=== PATIENT | female | born 1965 | race Caucasian/White ===

== ENCOUNTER 2018-03-08 01:28 | Outpatient (CLI) | payer MEDICAID, SELFPAY ==
--- NOTE | 2018-03-08 16:31 | DI.MAMMO_ITS ---
SYMPTOM/DIAGNOSIS: SCREENING, Z12.39 MAMMOGRAM: Mammograms were interpreted according to the usual protocol including computer analysis with CAD system, tomosynthesis and C view imaging. Comparison with prior examinations. Breast density B. No masses or microcalcifications are seen. There is nothing to suggest malignancy. IMPRESSION: Negative mammogram. Routine screening is recommended. Category I. MQSA ASSESSMENT OF FINDINGS: Negative. Category 1. Patient will receive a letter notifying them of these results. BI-RADS category B. There are scattered areas of fibroglandular density.
== END 2018-03-08 01:48 ==
PROVIDERS: PCP Nurse Practitioner; Visit Provider Nurse Practitioner
DX: Z12.31 Encounter for screening mammogram for malignant neoplasm of breast (principal)
CPT/HCPCS: 77063; 77067

== ENCOUNTER 2018-07-04 12:50 | Outpatient (REF) | payer SELFPAY ==
[2018-07-04 21:28] LABS: Abs Immature Grans 0.01 k/cumm (0.0-0.09); Absolute Basophil Count 0.07 k/cumm (0.0-0.2); Absolute Eosinophil Count 0.17 k/cumm (0.0-0.7); Absolute Lymphocyte Count 1.51 k/cumm (1.2-3.4); Absolute Monocyte Count 0.72 k/cumm (0.11-0.7); Absolute Neutrophil Count 4.27 k/cumm (1.2-6.7); Eosinophils % 2.5; HCT 39.9 % (36.0-46.0); HGB 13.5 g/dL (12.0-15.5); Immature Grans % 0.1; Lymphocytes % 22.4; Mean Corp. HGB Concentration 33.8 g/dL (32.0-36.0); Mean Corpuscular Hemoglobin 30.9 pg (27.0-33.0); Mean Corpuscular Volume 91.3 fL (80-95); Mean Platelet Volume 10.9 fL (8.0-11.0); Monocytes % 10.7; Neutrophils % 63.3; Platelet Count 305 x1000/uL (130-400); RBC 4.37 m/cumm (4.00-5.20); White Blood Cell Count 6.75 k/cumm (4.4-10.8)
[2018-07-04 22:27] LABS: ALT 20 U/L (12-78); AST 20 U/L (15-37); Alkaline Phosphatase 53 U/L (46-116); Anion Gap 7.8 mmol/L (3-11); BUN 12 mg/dL (7-18); Bilirubin, Total 0.3 mg/dL (0.2-1.0); CO2 28.2 mmol/L (21.0-32.0); CREATININE 0.81 mg/dL (0.55-1.02); Calcium 9.1 mg/dL (8.5-10.1); Chloride 101 mmol/L (98-107); Cholesterol 295 mg/dL (50-200); Glucose 79 mg/dL (70-100); HDL Cholesterol 96 mg/dL (40-60); LDL CHOLESTEROL 179 mg/dL (<100); Potassium 4.9 mmol/L (3.5-5.1); Sodium 137 mmol/L (136-145); TSH (W/Ref FT4) 1.02 uIU/mL (0.358-3.74); Total Protein 7.7 g/dL (6.4-8.2); Triglyceride 102 mg/dL (30-150)
[2018-07-04 22:36] LABS: Hemoglobin A1C 5.6 % (4.5-6.2)
== END 2018-07-04 13:10 ==
LOC: NCHCN 12:50
PROVIDERS: PCP Nurse Practitioner; Visit Provider Family Medicine
DX: R53.83 Other fatigue (principal); M79.18 Myalgia, other site; Z00.00 Encounter for general adult medical examination without abnormal findings
CPT/HCPCS: 80053; 80061; 83721; 83036; 84443; 85025

== ENCOUNTER 2019-07-12 02:14 | Outpatient (CLI) | payer SELFPAY ==
--- NOTE | 2019-07-12 12:55 | DI.RAD_ITS ---
EXAM: XR FOOT RT COMPLETE INDICATION: FOOT JOINT PAIN RT FOOT [id number]. COMPARISON: No exams were available for comparison TECHNIQUE: 2D digital imaging was performed. FINDINGS: There are severe degenerative changes of the 1st MTP joint. There is no hallux valgus. The remainin g MTP joints are unremarkable. Chronic-appearing bony densities are seen posterior to the talus. IMPRESSION: First MTP joint degenerative changes.
== END 2019-07-12 02:34 ==
PROVIDERS: PCP Nurse Practitioner; Visit Provider Nurse Practitioner
DX: M79.671 Pain in right foot (principal); M19.071 Primary osteoarthritis, right ankle and foot
CPT/HCPCS: 73630

== ENCOUNTER 2019-08-16 07:54 | Outpatient (REF) | payer OTHER, SELFPAY ==
--- NOTE | 2019-08-16 08:30 | PAPFT_PTH ---
PATIENT: Ashtyn Vega LOC: [facility]#:[id number] AGE/SX: 53/F ROOM: RE08/16/[address]: Nallely Seaman : 1965 BED: DIS: 08/16/2019 SPEC #: [id number] RECD: 08/16/19 12:47 STATUS: FERNANDO GORDON #: [id number] RAZIA: 08/16/19 08:[address]: Nallely Seaman DEPT: [facility] Cytology RECD BY: Chanelle Mesa Tissues: 1 - CX/ENDOCX FOR PAP SMEARS Procedures: PAP THIN PREP/UVM Screening HPV DNA PROBE Comments: [id number]
[2019-08-16 11:48] LABS: ALT 49 U/L (14-59); AST 53 U/L (15-37); Alkaline Phosphatase 58 U/L (46-116); Anion Gap 8.1 mmol/L (3-11); BUN 9 mg/dL (7-18); Bilirubin, Total 0.3 mg/dL (0.2-1.0); CO2 30.9 mmol/L (21.0-32.0); CREATININE 0.83 mg/dL (0.55-1.02); Calcium 9.5 mg/dL (8.5-10.1); Calculated LDL 190 mg/dL (<100); Chloride 102 mmol/L (98-107); Cholesterol 290 mg/dL (<200); Glucose 92 mg/dL (74-106); HDL Cholesterol 84 mg/dL (40-60); Potassium 4.7 mmol/L (3.5-5.1); Sodium 141 mmol/L (136-145); Total Protein 7.4 g/dL (6.4-8.2); Triglyceride 82 mg/dL (<150)
== END 2019-08-16 08:14 ==
LOC: NCHCN 07:54
PROVIDERS: PCP Nurse Practitioner; Visit Provider Nurse Practitioner
DX: Z00.00 Encounter for general adult medical examination without abnormal findings (principal); Z12.4 Encounter for screening for malignant neoplasm of cervix; Z11.51 Encounter for screening for human papillomavirus (HPV); Z13.220 Encounter for screening for lipoid disorders
CPT/HCPCS: 80053; 80061; 88142; 83880; 87624

== ENCOUNTER 2020-02-09 09:43 | Day surgery (SDC) | payer OTHER, SELFPAY ==
[2020-02-09 10:09] VITALS: BP 152/84; PULSE 70; RESP 20; TEMP 36.2; O2SAT 98
[2020-02-09] MEDS: Lactated Ringers 1,000 ML 80 ML IV (10:26)
--- NOTE | 2020-02-09 11:56 | W.PM.HP.N ---
Date of service: 02/09/20 Time of Service: 11:56 Assessment and Plan Assessment and plan (1) Colon cancer screening: Status: Acute Assessment and plan: I advised colonoscopy. The procedure was described including the risks of perforation with need for surgery or bleeding. Patient agrees to proceed. History of Present Illness Narrative: 54 y/o female presents for her first colonoscopy screening pre-op. She denies a family history of colon cancer. She denies any changes in bowel habits including bloody or black tarry stools, abdominal pain, diarrhea or constipation. She denies constitutional symptoms. She report use of marijuana occasionally. Denies use of any other recreational or illegal drugs. She denies chest pain, palpitations, dyspnea or dyspnea with exertion. She denies prior history or family history of adverse reactions or complications with anesthesia. She denies having any metal implanted in her body. Review of Systems All systems reviewed & are unremarkable except as noted in HPI and below PFSH Medical History Anxiety (Chronic) Depression (Chronic) Insomnia (Acute) Onychomycosis (Acute) Rotator cuff syndrome (Acute) Uterine fibroid (Acute) Surgical History H/O hernia repair (Chronic) History of section (Chronic) x3 Open Carpal Tunnel release (04/12/15) LEFT WRIST/Liset LÓPEZ wrist ECTR. Social History Smoking/Tobacco Use Status: Never Alcohol Intake: current Alcohol Intake frequency: a few times a week Alcohol type: beer Drug use: Occasionally Substance use type: marijuana Details: last used 2 days ago. Do you feel safe at home: Yes Do you feel safe in your relationship?: Yes Meds Home Medications and Allergies Home Medications Medication Instructions Recorded Confirmed Type fluoxetine [Prozac] 80 mg PO DAILY tab-cap 06/13/13 02/09/20 History acetaminophen [Tylenol] 325 mg PO DIRECTED tab-cap 01/08/15 02/09/20 History bupropion HCl [Wellbutrin Sr] 450 mg PO DAILY tab-cap 01/08/15 02/09/20 History ergocalciferol (vitamin D2) 1 tab PO DAILY tab-cap 01/08/15 02/09/20 History multivitamin [Daily Vitamin] 1 ea PO DAILY 01/08/15 02/09/20 History trazodone 100 mg PO HS tab-cap 01/08/15 02/09/20 History bisacodyl 5 mg tablet,delayed 5 mg PO ONCE #4 tab 01/30/20 02/09/20 Rx release polyethylene glycol 3350 17 17 g PO ONCE #238 gm 01/30/20 02/09/20 Rx gram/dose oral powder Allergies Allergy/AdvReac Type Severity Reaction Status Date / Time No Known Allergies Allergy Verified 02/09/20 10:17 Exam Narrative Exam Narrative: Alert, no distress Lungs CTA Heart RRR Results Last Vital Signs Temp 97.2 F L 02/09/20 10:09 Pulse 70 02/09/20 10:09 Resp 20 02/09/20 10:09 BP 152/84 H 02/09/20 10:09 Pulse Ox 98 02/09/20 10:09 COVID-19 Screening Have you,or household,traveled outside [place] in last 14 days?: No Had IN PERSON contact w/suspected or confirmed C-19 person: No
--- NOTE | 2020-02-09 12:00 | W.PM.DSUDISC ---
Discharge Plan Disposition Patient Disposition: HOME Condition: Good Discharge Details Reason For Visit: Colonoscopy Attending Provider: Angie Lopez Primary Care Provider: Nallely Seaman Home Meds and New Rx's Prescriptions: Continued fluoxetine [Prozac] 40 MG capsule 80 mg PO DAILY RF: 0 multivitamin [Daily Vitamin] 1 EACH tablet 1 ea PO DAILY RF: 0 bupropion HCl [Wellbutrin SR] 150 MG tablet extended release 12 hr 450 mg PO DAILY RF: 0 acetaminophen [Tylenol] 325 MG tablet 325 mg PO DIRECTED RF: 0 ergocalciferol (vitamin D2) 400 UNIT tablet 1 tab PO DAILY RF: 0 trazodone 100 MG tablet 100 mg PO HS RF: 0 Discontinued bisacodyl [Dulcolax (bisacodyl)] 5 mg tablet,delayed release (DR/EC) 5 mg PO ONCE Qty: 4 RF: 0 polyethylene glycol 3350 17 gram/dose powder 17 g PO ONCE Qty: 238 RF: 0 Discharge Instructions Additional Instructions: Findings: Your colonoscopy was normal. Follow up: Plan on routine screening colonoscopy in 10 years or sooner if symptoms arise. Please call if you develop: fevers >101.5 Nausea or Vomiting Abdominal pain that is not transient DAY SURGERY UNIT POST COLONOSCOPY INSTRUCTIONS 1. Because there will be medication in your system for the next 24 hours, you may feel a little sleepy. Your coordination will be affected. Therefore: a. Do not drive or operate dangerous equipment for 24 hours. b. Do not drink alcohol beverages for 24 hours (not even beer). c. Plan to go home and rest for the day. 2. Generally there are no restrictions on your activity after a day or so has gone by, but you may feel a bit fatigued for a few days. 3 After you arrive home you may have a light meal and return to a normal diet as you can tolerate it without feeling sick to your stomach. 4. After surgery, you may feel pain or discomfort. This should be only transient, but if it persists please contact your doctor. 5. If there are any questions regarding the findings of your procedure, please feel free to contact your doctor. 6. If you are unable to contact your doctor with a problem, contact the hospital at [phone]. 7. Continue all your regular medications unless directed otherwise. I understand the above instructions and have no questions. Signature of Patient or Responsible Adult Escort Date/Time Name of Responsible Adult Escort Signature of Nurse Date/Time Activity:: Activity as Tolerated Diet:: As Tolerated Discharge Orders Discharge Orders: Discharge Order (Routine); Ordered 02/09/20 Ordered By: Angie Lopez DS: Diagnosis Discharge Diagnosis (1) Colon cancer screening: Status: Acute
--- NOTE | 2020-02-09 12:02 | W.COLOREPORT ---
Date of service: 02/09/20 Time of Service: 12:44 Colonoscopy Report Date of procedure: 02/09/20 Pre-op diagnosis general: Colon screening Post-op diagnosis procedure note: other (Normal colon) Procedure: Colonoscopy Surgeon: Angie Lopez Anesthesia proc note operative: MAC Indications: This 54 year woman presents for her first screening colonoscopy. She has no symptoms or FH colon cancer. Procedure Description: The patient was placed in the left Salc[place] position. Propofol was titrated to sedation. Digital rectal examination revealed no abnormalities. The scope was advanced to the cecum without difficulty. The ileocecal valve and appendiceal orifice were clearly identified. The prep was good. The scope was slowly withdrawn over the course of greater than 6 minutes with no abnormalities seen in the ascending, transverse, descending, sigmoid colon or rectum including on retroflexed view. The patient tolerated the procedure well and was stable to recovery. Plan for routine screening colonoscopy in 10 years or sooner if symptoms indicate.
[2020-02-09 13:29] VITALS: BP 133/81; PULSE 73; RESP 20; TEMP 36.2; O2SAT 100
== END 2020-02-09 13:58 | disposition home or self-care (01) ==
PROVIDERS: PCP Nurse Practitioner; Visit Provider Surgery
PROC: 0DJD8ZZ Inspection of Lower Intestinal Tract, Via Natural or Artificial Opening Endoscopic (ICD-10-PCS; CPT 45378; principal; 2020-02-09 12:00)
DX: Z12.11 Encounter for screening for malignant neoplasm of colon (principal)
CPT/HCPCS: 45378; 81025; NC; J2704

== ENCOUNTER 2020-07-30 01:49 | Outpatient (CLI) | payer OTHER, SELFPAY ==
--- NOTE | 2020-07-30 12:48 | DI.MAMMO_ITS ---
EXAM: MAMMO SCREENING CLINICAL HISTORY: SCREENING, Z12.39 TECHNIQUE: Mammograms were interpreted according to the usual protocol including computer analysis w Strobe CAD system, tomosynthesis and C-view imaging. COMPARISON: 2018 FINDINGS: The breasts are composed of scattered fibroglandular densities, Breast Density category B. No suspicious masses or suspicious microcalcifications are seen. No skin thickening or abnormal axillary lymph nodes are seen. There has been no significant change from prior exams. IMPRESSION: BI-RADS Category 1, Negative mammogram Yearly screening mammography is recommended. Breast Density - Category B, scattered fibroglandular densities. A negative radiographic report should not delay biopsy if a dominant or clinically suspicious mass is present. Up to ten percent of cancers are not identified on mammography. A negative report may reinforce clinical impression. Adenosis and dense breasts may obscure an underlying neoplasm. False positive reports average 6 to 10%. Patient will receive a letter notifying them of these results.
== END 2020-07-30 02:09 ==
PROVIDERS: PCP Nurse Practitioner; Visit Provider Nurse Practitioner
DX: Z12.31 Encounter for screening mammogram for malignant neoplasm of breast (principal)
CPT/HCPCS: 77063; 77067

== ENCOUNTER 2020-09-16 13:18 | Outpatient (REF) | payer OTHER, SELFPAY ==
--- NOTE | 2020-09-16 13:30 | PAPFT_PTH ---
PATIENT: Ashtyn Vega LOC: [facility]#:[id number] AGE/SX: 54/F ROOM: RE09/16/[address]: Nallely Seaman : 1965 BED: DIS: 09/16/2020 SPEC #: [id number] RECD: 09/16/20 17:15 STATUS: FERNANDO GORDON #: [id number] RAZIA: 09/16/20 13:[address]: Nallely Seaman DEPT: [facility] Cytology RECD BY: Chanelle Mesa Tissues: 1 - CX/ENDOCX FOR PAP SMEARS Procedures: PAP THIN PREP/UVM Screening HPV DNA PROBE Comments: [id number]
[2020-09-16 16:28] LABS: ALT 44 U/L (14-59); AST 32 U/L (15-37); Albumin 4.1 g/dL (3.4-5.0); Alkaline Phosphatase 55 U/L (46-116); Anion Gap 8.2 mmol/L (3-11); BUN 16 mg/dL (7-18); Bilirubin, Total 0.3 mg/dL (0.2-1.0); CO2 29.8 mmol/L (21.0-32.0); CREATININE 0.8 mg/dL (0.55-1.02); Calcium 9.5 mg/dL (8.5-10.1); Calculated LDL 202 mg/dL (<100); Chloride 101 mmol/L (98-107); Cholesterol 330 mg/dL (<200); Glucose 85 mg/dL (74-106); HDL Cholesterol 114 mg/dL (40-60); Potassium 4.3 mmol/L (3.5-5.1); Sodium 139 mmol/L (136-145); Total Protein 7.7 g/dL (6.4-8.2); Triglyceride 70 mg/dL (<150)
== END 2020-09-16 13:19 | disposition home or self-care (01) ==
LOC: NCHCN 13:18
PROVIDERS: PCP Nurse Practitioner; Visit Provider Nurse Practitioner
DX: Z00.00 Encounter for general adult medical examination without abnormal findings (principal); E78.5 Hyperlipidemia, unspecified; F41.8 Other specified anxiety disorders; Z12.4 Encounter for screening for malignant neoplasm of cervix; Z11.51 Encounter for screening for human papillomavirus (HPV)
CPT/HCPCS: 80053; 80061; 88142; 87624

== ENCOUNTER 2022-01-08 18:59 | Outpatient (REF) | payer OTHER, SELFPAY ==
[2022-01-08 19:30] LABS: ALT 26 U/L (14-59); AST 25 U/L (15-37); Alkaline Phosphatase 50 U/L (46-116); Anion Gap 9.3 mmol/L (3-11); BUN 15 mg/dL (7-18); Bilirubin, Total 0.3 mg/dL (0.2-1.0); CO2 27.7 mmol/L (21.0-32.0); CREATININE 0.9 mg/dL (0.55-1.02); Calcium 8.9 mg/dL (8.5-10.1); Calculated LDL 185 mg/dL (<100); Chloride 99 mmol/L (98-107); Cholesterol 300 mg/dL (<200); Glucose 90 mg/dL (74-106); HDL Cholesterol 88 mg/dL (40-60); Potassium 4.1 mmol/L (3.5-5.1); Sodium 136 mmol/L (136-145); Total Protein 7.3 g/dL (6.4-8.2); Triglyceride 136 mg/dL (<150)
== END 2022-01-08 19:00 | disposition home or self-care (01) ==
LOC: NCHCN 18:59
PROVIDERS: PCP Nurse Practitioner; Visit Provider Nurse Practitioner Family
DX: Z00.00 Encounter for general adult medical examination without abnormal findings (principal); F41.8 Other specified anxiety disorders; E78.5 Hyperlipidemia, unspecified; G47.00 Insomnia, unspecified
CPT/HCPCS: 80053; 80061

== ENCOUNTER 2023-01-11 19:16 | Outpatient (REF) | payer OTHER, SELFPAY ==
[2023-01-11 19:53] LABS: Abs Immature Grans 0.01 10^3/uL (0.0-0.06); Absolute Basophil Count 0.08 10^3/uL (0.0-0.2); Absolute Lymphocyte Count 1.71 10^3/uL (1.2-3.4); Absolute Monocyte Count 0.74 10^3/uL (0.1-0.8); Absolute Neutrophil Count 3.32 10^3/uL (1.2-6.7); Basophils % 1.3; Eosinophils % 3.3; HCT 39.8 % (36.0-46.0); HGB 14.2 g/dL (11.2-15.7); Immature Grans % 0.2; Lymphocytes % 28.2; MCH 32.6 pg (27.0-33.0); MCHC 35.7 % (32.0-36.0); MCV 91 fL (80-95); MPV 9.5 fL (8.0-11.0); Monocytes % 12.2; Neutrophils % 54.8; Platelet Count 360 10^3/uL (130-400); RBC 4.36 10^6/uL (3.93-5.22); RDW 11.6 % (11.7-14.6); RDW-SD 39.4 fL; WBC 6.06 10^3/uL (4.4-10.8)
[2023-01-11 20:44] LABS: ALT 28 U/L (14-59); AST 28 U/L (15-37); Albumin 4.1 g/dL (3.4-5.0); Alkaline Phosphatase 60 U/L (46-116); Anion Gap 9.5 mmol/L (3-11); BUN 9 mg/dL (7-18); Bilirubin, Total 0.3 mg/dL (0.2-1.0); CO2 27.5 mmol/L (21.0-32.0); CREATININE 0.8 mg/dL (0.55-1.02); Calcium 9.2 mg/dL (8.5-10.1); Calculated LDL 191 mg/dL (<100); Chloride 99 mmol/L (98-107); Cholesterol 316 mg/dL (<200); Estimated GFR 86.96 (mL/min/1.73m2); Glucose 109 mg/dL (74-106); HDL Cholesterol 110 mg/dL (40-60); Potassium 4.1 mmol/L (3.5-5.1); Sodium 136 mmol/L (136-145); TSH (W/Ref FT4) 1.57 uIU/mL (0.36-3.74); Total Protein 7.4 g/dL (6.4-8.2); Triglyceride 79 mg/dL (<150)
== END 2023-01-11 19:17 | disposition home or self-care (01) ==
LOC: NCHCN 19:16
PROVIDERS: PCP Nurse Practitioner; Visit Provider Nurse Practitioner Family
DX: E78.5 Hyperlipidemia, unspecified (principal); Z79.899 Other long term (current) drug therapy; F41.8 Other specified anxiety disorders
CPT/HCPCS: 80053; 80061; 84443; 85025

== ENCOUNTER 2023-01-20 03:16 | Outpatient (CLI) | payer OTHER, SELFPAY ==
--- NOTE | 2023-01-20 | DI.MAMMO_ITS ---
Exam(s) MAMMO SCREENING EXAM: MAMMO SCREENING CLINICAL HISTORY: SCREENING, Z12.39 TECHNIQUE: Bilateral full field digital CC and MLO mammographic images were obtained with 3D tomosyn thesis and utilizing computer aided detection (CAD). COMPARISON: Available for comparison. FINDINGS: Masses/Architectural Distortion: There is a new 3 mm nodule in the outer left breast seen on the cran iocaudad view. No areas of architectural distortion are present. Microcalcifications: No suspicious pleomorphic-type are seen. Skin Thickening/Nipple Retraction: None. IMPRESSION: 1. New 3 mm nodule in the outer left breast on the craniocaudad view. 2. This area should be further evaluated with a spot compression view. Limited left breast ultrasoun d may also be indicated at that time. BI-RADS Category 0 - Assessment Incomplete: Need additional imaging evaluation Breast Density - Category B - Scattered areas of fibroglandular density Breast density category C or D implies that the patient has dense breast tissue. Dense breast tissue is very common and is not abnormal but dense breast tissue can make it harder to find cancer on a ma mmogram. Also, dense breast tissue may increase their breast cancer risk. This information about the result of the mammogram report was provided to the patient to raise their awareness. Use this report when you speak with the patient about their risks for breast cancer, which includes their family hist ory. At that time, you may recommend for more screening tests (Ultrasound or MRI) as they might be us eful based on their risk. A negative radiographic report should not delay biopsy if a dominant or clinically suspicious mass is present. Up to ten percent of cancers are not identified on mammography. A negative report may reinforce clinical impression. Adenosis and dense breasts may obscure an underlying neoplasm. False positive reports average 6 to 10%. Patient will receive a letter notifying them of these results.
== END 2023-01-20 03:36 ==
LOC: DI 03:16
PROVIDERS: PCP Nurse Practitioner; Visit Provider Nurse Practitioner Family
DX: Z12.31 Encounter for screening mammogram for malignant neoplasm of breast (principal)
CPT/HCPCS: 77063; 77067

== ENCOUNTER 2023-01-27 02:59 | Outpatient (CLI) | payer OTHER, SELFPAY ==
--- NOTE | 2023-01-27 14:37 | DI.MAMMO_ITS ---
Exam(s) MG MAMMO SCREEN CALL BACK UNI US BREAST LT LIMITED EXAM: MG MAMMO SCREEN CALL BACK UNI and U/S breast LT limited CLINICAL HISTORY: 3 MM NODULE IN OUTER LT BREAST ON CC VIEW. TECHNIQUE: Craniocaudal and mediolateral oblique Full Field Digital Mammography views of the left br east with Computer Aided Diagnosis followed by Tomosynthesis and left breast ultrasound. COMPARISON: Comparison is made with prior examinations. FINDINGS: Mammography/Tomosynthesis: Masses/Architectural Distortion: The previously noted nodule is less concerning on the additional vie ws. Microcalcifictions: No suspicious pleomorphic-type are seen. Skin Thickening/Nipple Retraction: None. Limited left breast US: Echotexture: Normal appearance of the glandular tissue. Shadowing: No suspicious foci. Cyst: None. Solid lesions: Benign-appearing lymph node is seen in the axillary tail region of the breast. Ductal dilation: None. IMPRESSION: 1. No evidence of malignancy is noted. 2. Unless there is more urgent need, follow-up screening mammography is recommended, as per [place] [employer] guidelines. 3. The findings were discussed with the patient on the date of the examination. BI-RADS Category 1 - Negative Breast Density - Category B - Scattered areas of fibroglandular density Breast density Category C or D implies that the patient has dense breast tissue. Dense breast tissue can make it harder to find cancer on a mammogram. Dense breast tissue is also associated with an incr eased risk of breast cancer. This information about the result of the mammogram report was provided to the patient to raise their awareness. Use this report when you speak with the patient about their risks for breast cancer, which includes their family history. At that time, you may recommend additional screening tests (Ultrasoun d or MRI) as these tests may add significant information. A negative radiographic report should not delay biopsy if a dominant or clinically suspicious mass is present. Up to ten percent of cancers are not identified on mammography. A negative report may reinforce clinical impression. Adenosis and dense breasts may obscure an underlying neoplasm. False positive reports average 6 to 10%. Patient will receive a letter notifying them of these results.
== END 2023-01-27 03:19 ==
LOC: DI 02:59
PROVIDERS: PCP Nurse Practitioner; Visit Provider Nurse Practitioner Family
DX: Z12.31 Encounter for screening mammogram for malignant neoplasm of breast (principal); R92.8 Other abnormal and inconclusive findings on diagnostic imaging of breast
CPT/HCPCS: 76642; 77063; 77067

== ENCOUNTER 2023-07-01 09:45 | Emergency (ER) | payer OTHER, SELFPAY ==
[2023-07-01 09:50] VITALS: BP 203/101; PULSE 107; TEMP 36.9; O2SAT 100
--- NOTE | 2023-07-01 10:15 | RT.EKG_ITS ---
APPROVED REPORT Exam: Resting ECG Reason for Exam: depression, eval QT Patient Location: E HR:90 bpm ECG Measurements Heart Rate 90 AXIS [place] 151 P 39 QRSd 76 QRS 5 QT 374 T 5 QTc 458 Conclusion Sinus rhythm...normal P axis, V-rate 60- 99 Probable left atrial enlargement...P >50mS, <-0.10mV V1 no ST segment or T wave abnormalities to suggest occlusive VT
--- NOTE | 2023-07-01 10:23 | W.ED.GENAD ---
Discharge Plan Disposition Patient Disposition: Home Condition: Stable Discharge Details Clinical Impression: Anxiety, Depression Primary Care Provider: Nallely Seaman ED Provider: Minnie Matta Home Meds and New Rx's Prescriptions: No Action fluoxetine [Prozac] 40 MG capsule 80 mg PO DAILY multivitamin [Daily Vitamin] 1 EACH tablet 1 ea PO DAILY bupropion HCl [Wellbutrin SR] 150 MG tablet extended release 12 hr 450 mg PO DAILY acetaminophen [Tylenol] 325 MG tablet 325 mg PO DIRECTED ergocalciferol (vitamin D2) 400 UNIT tablet 1 tab PO DAILY trazodone 100 MG tablet 100 mg PO HS aripiprazole 2 mg tablet 5 mg PO DAILY Patient Comments: TAKE ONE TABLET BY MOUTH EVERY DAY Rx Instructions: orally; atorvastatin 40 mg tablet 40 mg PO DAILY Patient Comments: TAKE 1 TABLET BY MOUTH EVERY EVENING Discharge Instructions Instructions: Depression (ED), Help Prevent Suicide (ED) Additional Instructions: Please continue your medications as previously prescribed. Please follow the safety plan as discussed by [facility] services. Please return to the ER for any worsening thoughts of wanting to harm yourself, or any concerns. [facility] will check in on you daily, please call the crisis hotline if needed or return to ED. Medical screening exam was with largely within normal limits. No evidence of hypothyroidism or urinary tract infection. Referrals: [facility] [Outside] - 1 day (As directed) Nallely Seaman [Primary Care Provider] - Return if symptoms worsen Discharge Data Discharge Date/Time-TO BE ENTERED AT DEPARTURE: 07/01/23 13:11 Medical Decision Making 57-year-old female presents to the ER with chief complaint of depression, recent changes in her medications and she quotes I have hit a wall, I just cannot pull myself out of it anymore, she is tearful upon my evaluation. She denies any problems with appetite. She reports no current suicidal plan however she states that she has had suicidal ideations in the past and that she is afraid of losing her job. She was recently taken off Wellbutrin and prescribed Abilify which she reports is not working for her she also takes fluoxetine which she has been on for a very long time. She does have a past medical history of insomnia uterine fibroids, anxiety depression and rotator cuff syndrome. Her PCP does prescribe her medications. She does have a surgical history of hernia repair and carpal tunnel release. On initial exam she is guarded, tearful and appears sad. Medical clearance workup ordered including EKG CBC CMP TSH level, urinalysis and UDS and ethyl alcohol level, patient is a daily drinker. She does have recent medication changes and she reports that she has not been to her PCP in a while. Will have an EKG chest consult after medical clearance screening. CBC shows no leukocytosis, CMP shows glucose of 136, TSH within normal limits, urine analysis shows no signs of UTI, negative UDS, ethyl alcohol less than 3.0 1137: Spoke with GRACIE Santos who reports someone will be over soon. Differential diagnosis includes but not limited to anxiety, depression 1230: Leann BOWMAN here at [facility] for eval. 1254: Leann BOWMAN states that patient to be discharged home with safety plan and then transition to a care bed when available. Will plan to discharge in the care of her friend with strict return instructions. This text was generated using [employer]ation system, please disregard any oddities of phrase or misspellings. HPI General Mode of arrival: ambulatory. Date/Time Provider Initiated Documentation: 07/01/23 09:46. Limitations to Documentation: no limitations. Information obtained by: patient, RN notes reviewed and old records reviewed. HPI Narrative: 57-year-old female presents to the ER with chief complaint of depression, recent changes in her medications and she quotes I have hit a wall, I just cannot pull myself out of it anymore, she is tearful upon my evaluation. She denies any problems with appetite. She reports no current suicidal plan however she states that she has had suicidal ideations in the past and that she is afraid of losing her job. She was recently taken off Wellbutrin and prescribed Abilify which she reports is not working for her she also takes fluoxetine which she has been on for a very long time. She does have a past medical history of insomnia uterine fibroids, anxiety depression and rotator cuff syndrome. Her PCP does prescribe her medications. She does have a surgical history of hernia repair and carpal tunnel release. On initial exam she is guarded, tearful and appears sad. Related Data Home Medications Medication Instructions Recorded Confirmed fluoxetine 40 mg capsule (Prozac) 80 mg PO DAILY 06/13/13 07/01/23 acetaminophen 325 mg tablet 325 mg PO DIRECTED 01/08/15 07/01/23 (Tylenol) bupropion HCl 150 mg tablet,12 hr 450 mg PO DAILY 01/08/15 07/01/23 sustained-release (Wellbutrin SR) ergocalciferol (vitamin D2) 10 mcg 1 tab PO DAILY 01/08/15 07/01/23 (400 unit) tablet multivitamin (Daily Vitamin tablet) 1 ea PO DAILY 01/08/15 07/01/23 trazodone 100 mg tablet 100 mg PO HS 01/08/15 07/01/23 aripiprazole 2 mg tablet 5 mg PO DAILY 07/01/23 07/01/23 atorvastatin 40 mg tablet 40 mg PO DAILY 07/01/23 07/01/23 Allergies Allergy/AdvReac Type Severity Reaction Status Date / Time No Known Allergies Allergy Verified 07/01/23 09:53 General Stated Complaint: PsychEval LOW: 2 Review of Systems All systems reviewed & are unremarkable except as noted in HPI and below Cardiovascular Cardiovascular: Denies chest pain and Denies dyspnea Respiratory Respiratory: Denies dyspnea Gastrointestinal Gastrointestinal: Denies abdominal pain, Denies hematochezia, Reports change in stool character, Reports loose stools, Denies nausea and Denies vomiting Psychiatric Psychiatric: Reports as per HPI, Reports anxiety, Denies change in appetite, Reports depression, Reports difficulty concentrating, Reports mood swings, Denies visual hallucinations and Denies hallucinations PFSH All Active Problems (Updated 07/01/23 @ 13:00 by Minnie Matta NP) Depression (Chronic) Anxiety (Chronic) Colon cancer screening (Acute) Medical History (Updated 07/01/23 @ 13:00 by Minnie Matta NP) Insomnia Uterine fibroid Rotator cuff syndrome Onychomycosis Anxiety Depression Surgical History History of section x3 H/O hernia repair Open Carpal Tunnel release (04/12/15) LEFT WRIST/DR. RIVERA R wrist ECTR. Social History Smoking/Tobacco Use Status: Never Smoking risk assessment performed?: Yes Alcohol Intake: current Alcohol Intake frequency: a few times a week Alcohol type: beer Drug use: Never Substance use type: does not use Details: last used 2 days ago. Do you feel safe at home: Yes Do you feel safe in your relationship?: Yes Exam Psych Appearance: well kempt Speech and Movement: speech and movement normal Affect: sad Attitude: cooperative Thought Content: phobias (Is afraid of losing her job due to her symptoms) Insight: insight good Judgment: judgment good Course Vital Signs Vital signs: Vital Signs Temperature 36.9 C 07/01/23 09:50 Pulse 107 H 07/01/23 09:50 Blood Pressure 203/101 H 07/01/23 09:50 Pulse Oximetry 100 07/01/23 09:50 Temperature 36.9 C 07/01/23 09:50 Temperature Source Temporal Artery Scan 07/01/23 09:50 Pulse 107 H 07/01/23 09:50 Respiratory Effort Normal, Non-Labored 07/01/23 09:57 Blood Pressure 203/101 H 07/01/23 09:50 Blood Pressure Position Sitting 07/01/23 09:50 Pulse Oximetry 100 07/01/23 09:50 Oxygen Delivery Method Nasal Cannula 07/01/23 09:50 PAWSS Have you Been Recently Intoxicated or Drunk Within the Last 30 days?: No Have you Ever Experienced Previous Episodes of Alcohol Withdrawal?: No Have you ever Experienced Withdrawal Seizures?: No Have you ever Experienced Delirium Tremens(DT)s?: No Have you ever undergone Alcohol Rehabilitation Treatment (i.e, inpt ot outpatient treatment programs)?: No Have you ever Experienced Blackouts?: No Have you ever Combined Alcohol with other Downers within the last 90 days?: No Have you ever Combined Alcohol with any other Substance of Abuse during the last 90 days?: No Positive Blood Alcohol level on Presentation? [PCS.BAL]: No Evidence of Increased Autonomic Activity (i.e. HR>120, tremor, sweating, agitation, nausea)?: No Result: 0
[2023-07-01 10:41] LABS: Abs Immature Grans 0.02 10^3/uL (0.0-0.06); Absolute Basophil Count 0.09 10^3/uL (0.0-0.2); Absolute Eosinophil Count 0.04 10^3/uL (0.0-0.7); Absolute Monocyte Count 0.71 10^3/uL (0.1-0.8); Absolute Neutrophil Count 6.49 10^3/uL (1.2-6.7); Basophils % 1.1; Eosinophils % 0.5; HCT 41.6 % (36.0-46.0); HGB 14.5 g/dL (11.2-15.7); Immature Grans % 0.2; MCH 32.4 pg (27.0-33.0); MCHC 34.9 % (32.0-36.0); MCV 93 fL (80-95); MPV 9.2 fL (8.0-11.0); Monocytes % 8.3; Neutrophils % 75.9; Platelet Count 342 10^3/uL (130-400); RBC 4.48 10^6/uL (3.93-5.22); RDW 11.9 % (11.7-14.6); RDW-SD 41.3 fL; WBC 8.55 10^3/uL (4.4-10.8)
[2023-07-01 11:04] LABS: ALT 35 U/L (14-59); AST 32 U/L (15-37); Albumin 4.2 g/dL (3.4-5.0); Alkaline Phosphatase 64 U/L (46-116); Anion Gap 10.7 mmol/L (3-11); BUN 14 mg/dL (7-18); Bilirubin, Total 0.5 mg/dL (0.2-1.0); CO2 26.3 mmol/L (21.0-32.0); CREATININE 0.8 mg/dL (0.55-1.02); Calcium 9.5 mg/dL (8.5-10.1); Chloride 100 mmol/L (98-107); Estimated GFR 86.96 (mL/min/1.73m2); Glucose 136 mg/dL (74-106); Potassium 4.2 mmol/L (3.5-5.1); Sodium 137 mmol/L (136-145); TSH (W/Ref FT4) 1.11 uIU/mL (0.36-3.74); Total Protein 8.2 g/dL (6.4-8.2)
[2023-07-01 11:05] LABS: Acetaminophen < 2 ug/mL (10-30); ETHANOL BLOOD < 3.0 mg/dL (<10); Salicylate < 2.8 mg/dL (<2.8)
[2023-07-01 11:10] LABS: Bilirubin Negative (Negative); Blood Negative (Negative); Clarity Clear (Clear); Glucose Negative (Negative); Ketones Negative (Negative); Leukocyte Esterase Negative (Negative); Nitrite Negative (Negative); Urobilinogen 0.2 mg/dL (Up to 0.2)
[2023-07-01 11:28] LABS: *AMPHETAMINES SCREEN URINE Negative (Negative); *BARBITURATES SCREEN URINE Negative (Negative); *BENZODIAZEPINES SCREEN URINE Negative (Negative); Cannabinoids THC Negative (Negative); Cocaine Screen,Urine Negative (Negative); METHADONE URINE SCREEN Negative (Negative); OPIATES URINE SCREEN Negative (Negative); Tricyclic Antidepressants Negative (Negative)
--- NOTE | 2023-07-01 14:45 | PDOC.MHCN ---
Date of service: 07/01/23 Time of Service: 12:07 PHQ-9 Over the last 2 weeks, how often have you been bothered by any of the following problems? 1. Little interest or pleasure in doing things: nearly every day 2. Feeling down, depressed, or hopeless: nearly every day 3. Trouble falling or staying asleep, or sleeping too much: nearly every day 4. Feeling tired or having little energy: nearly every day 5. Poor appetite or overeating: nearly every day 6. Feeling bad about yourself - or that you are a failure or have let yourself and your family down: more than half the days 7. Trouble concentrating on things, such as reading the newspaper or watching television: nearly every day 8. Moving or speaking so slowly that other people could have noticed? - Or the opposite - being so fidgety or restless that you have been moving around a lot more than usual: nearly every day 9. Thoughts that you would be better off or of hurting yourself in some way: not at all Total score: 23 If you checked off any problems, how difficult have these problems made it for you to do your work, take care of things at home, or get along with other people?: extremely difficult Source: Developed by Drs. Marcelo Yanez, Angela Doan, Saul Quiros and colleagues, with an educational hamlet from [employer]. Suicide Severity Rate CSSRS Have you wished you were or wished you could go to sleep and not wake up?: No Have you actually had any thoughts of killing yourself?: No CSSRS3 Have you ever done anything, started to do anything or prepared to do anything to end your life?: Yes CSSRS4 Was this within the past three months?: No Screening Score Total Score: 2 Screening: Positive Mental Health Emergency Note Release [facility] release signed:: Yes Reason for Visit In the last 2 weeks has the pt presented for ES prior to today?: No Client Information Client is: New Well Housed: Yes Non Suicidal Self Injury Current: No History: yes, 30 years ago client attempted to by suicide. Safety Risk/Harm to Self or Others Current Ideation to Harm Self or Others: No Risk: Does risk to harm exist?: No Risk: Moderate Risk Duty to warn indicated: No Asssessment/Mental Status Appearance: Unremarkable Attitude: Cooperative and Friendly Behavior: Unremarkable Speech: Normal, Soft and Hesitant Affect: Cogruent with mood Mood: Depressed and Anxious Thought process: Unremarkable and Blocking Hallucinations: No evidence Delusions: No evidence Attention: Unremarkable Perception: Not impaired Orientation: Fully orientated Memory: Intact Insight: Good Judgement: Good Neurovegetative Symptoms Sleep: Increase (Client reported waking up frequently and having a constant want to sleep.) Appetitie: Disordered (Client reported that her medications cause a flux in appetite.) Interests: Decrease Energy: Decrease Libido: Not applicable Substance Use: Have you used substances in the last 7 days?: yes, Client occasionally drink alcohol, last usage 06/30 Plan/Disposition Recommended Disposition: Crisis bed, facility contacted. Status of Crisis Bed acceptance: Pending review. Plan: Client is Ashtyn Vega, 57-year-old female. ?Client is not known to the agency, client presented into [facility] ED looking to speak with mental health about the increase in her depression and anxiety that has been affecting her everyday needs. Client was screened and assessed in person at [facility] ED. Client reports that her depression feels out of control, and then she feels like she?s ?going downhill. Client reports that since a change in her medication she has noticed a drastic difference in her ability to manage her needs and tasks. Client reported a pass attempt 30 years ago but since then has been able to regulate and manage her mental health with medication management that does not currently see a therapist. Client reports that even though she is feeling well rested she notices that she is waking up often and has the constant want to stay asleep. Client reports that her appetite is ?up and down? due to the recent change in medication and when the client is severely depressed, she does not eat. Client has no thoughts of wanting to hurt herself and others. Client reported that she does not engage in NSSI, nor has intent or a plan to by suicide. Client does have access to means in the forms of kitchen knives and a gun. Client was safety planned home with the intent to complete check in phone calls at 8:00 am until placed at the care bed for additional support for her ongoing depression and anxiety. In addition to referrals for individual therapy and medication management. Reports/communication Outcome discussed with: ED/Personnel
== END 2023-07-01 13:11 | disposition home or self-care (01) ==
PROVIDERS: Emergency Provider Registered Nurse Emergency; PCP Nurse Practitioner
DX: F32.A Depression, unspecified (principal); R94.31 Abnormal electrocardiogram [ECG] [EKG]
CPT/HCPCS: 00123; 80053; 80307; 93005; 96127; 99283; 80320; 80329; 81003; 84443; 85025; 93010